=== PATIENT | female | born 1980 | race Caucasian/White ===

== ENCOUNTER 2017-01-01 09:46 | Emergency (ER) | payer MEDICAID ==
[2017-01-01 12:54] LABS: BASOPHIL % 0.5 % (0-2); PLATELET COUNT 343 x10^3mcL (130-400); RED CELL DISTRIBUTION WIDTH 13.8 % (11.5-14.5)
[2017-01-01 13:08] LABS: CALCIUM 8.6 mg/dL (8.5-10.1); CARBON DIOXIDE 26.2 mmol/L (21-32); CHLORIDE SERUM 104 mmol/L (98-107); CREATININE SERUM 0.5 mg/dL (0.6-1.0); GFR1 > 60 mL/min; GLUCOSE SERUM 80 mg/dL (74-106); POTASSIUM SERUM 3.7 mmol/L (3.5-5.1); SODIUM SERUM 138 mmol/L (136-145)
[2017-01-01 13:12] LABS: ALBUMIN 3.6 g/dL (3.4-5.0); ALKALINE PHOSPHATASE 87 U/L (46-116); ALT/SGPT 40 U/L (14-59); AST/SGOT 23 U/L (15-37); BILIRUBIN TOTAL 0.48 mg/dL (0.20-1.00); CHOLESTEROL 149 mg/dL (<200); HDL CHOLESTEROL 37 mg/dL (40-60); LIPASE 132 IU/L (73-393); TOTAL PROTEIN, SERUM 7.2 g/dL (6.4-8.2); TRIGLYCERIDES 129 mg/dL (<150)
[2017-01-01 13:21] LABS: T3 TOTAL 1.28 ng/mL
[2017-01-01 13:26] LABS: FREE T4 1.32 ng/dL (0.76-1.46); T4(THYROXINE) 10.3 ug/dL (4.7-13.3)
[2017-01-01 15:37] VITALS: BP 133/96
== END 2017-01-01 15:37 | disposition home or self-care (01) ==
LOC: ED 09:46
PROVIDERS: Specialist
DX: R42 Dizziness and giddiness (principal); R20.0 Anesthesia of skin; D25.9 Leiomyoma of uterus, unspecified
CPT/HCPCS: 83880; 84439; J8597

== ENCOUNTER 2017-04-26 11:48 | Emergency (ER) | payer MEDICAID ==
[~2017-04-26] VITALS: Ht 149.9 cm; Wt 69.8 kg
[2017-04-26 14:19] LABS: microscopic required? NO
[2017-04-26 14:31] LABS: UA SPECIFIC GRAVITY 1.025 (1.005-1.035); urine erythrocyte NEGATIVE (NEGATIVE)
[2017-04-26 15:44] VITALS: BP 117/74
== END 2017-04-26 16:05 | disposition home or self-care (01) ==
LOC: ED 11:48
PROVIDERS: Emergency Medicine Emergency Medical Services
DX: R10.31 Right lower quadrant pain (principal); R30.0 Dysuria